=== PATIENT | female | born 1975 | race Caucasian/White ===

== ENCOUNTER 2020-03-23 07:26 | Emergency (ER) | payer SELFPAY ==
[~2020-03-23] VITALS: Ht 162.6 cm; Wt 68.1 kg
[2020-03-23 07:29] VITALS: BP 123/93
--- NOTE | 2020-03-23 07:43 | NUR ---
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
== END 2020-03-23 08:16 | disposition left against medical advice (07) ==
LOC: ED 08:10
DX: R10.9 Unspecified abdominal pain (principal); Z53.21 Procedure and treatment not carried out due to patient leaving prior to being seen by health care provider